=== PATIENT | female | born 1975 | race Two or more races ===

== ENCOUNTER 2017-01-31 20:34 | Emergency (ER) | payer OTHER ==
[2017-01-31] MEDS ORDERED: DEXAMETHASONE 4 MG TABLET ONE (22:52)
[2017-01-31] MEDS ORDERED: ACETAMINOPHEN 325 MG TABLET ONE (22:52)
[2017-01-31] MEDS ORDERED: IBUPROFEN 600 MG TABLET ONE (22:52)
[2017-01-31] MEDS ORDERED: PENICILLIN G BENZATHINE 1.2 MMU/2 ML SYRINGE IM ONE (22:53)
== END 2017-01-31 23:17 | disposition home or self-care (01) ==
LOC: ED 20:34
DX: J02.0 Streptococcal pharyngitis (principal); F17.210 Nicotine dependence, cigarettes, uncomplicated
CPT/HCPCS: 87880; 99283 ×2; 96372; A9270 ×3; J0561